=== PATIENT | female | born 1965 | race Two or more races ===

== ENCOUNTER → 2018-06-12 11:01 | Outpatient (CLI) | payer OTHER ==
[~2018-06-12 11:01] MED LIST: CIPRO750 MG PO; DOCUSATE SODIU100 MG PO; PERCOCET 5/3251 TAB PO
== END | disposition home or self-care (01) ==
LOC: LAB 11:01
DX: S34.109A Unspecified injury to unspecified level of lumbar spinal cord, initial encounter (principal); E55.9 Vitamin D deficiency, unspecified; E44.1 Mild protein-calorie malnutrition; M54.5 Low back pain; F33.1 Major depressive disorder, recurrent, moderate; G99.0 Autonomic neuropathy in diseases classified elsewhere; E88.89 Other specified metabolic disorders; F15.20 Other stimulant dependence, uncomplicated; M06.4 Inflammatory polyarthropathy; Z68.32 Body mass index [BMI] 32.0-32.9, adult; R31.1 Benign essential microscopic hematuria

== ENCOUNTER → 2018-09-11 09:03 | Outpatient (CLI) | payer OTHER | END | disposition home or self-care (01) | LOC: LAB 09:03 | DX: D64.89 Other specified anemias (principal); E03.8 Other specified hypothyroidism; N39.0 Urinary tract infection, site not specified; K92.1 Melena; E78.49 Other hyperlipidemia; E55.9 Vitamin D deficiency, unspecified ==

== ENCOUNTER 2019-04-26 10:20 | Outpatient (CLI) | payer OTHER | END 2019-04-26 11:03 | disposition home or self-care (01) | LOC: SONOGRAMA 10:20 | DX: E04.1 Nontoxic single thyroid nodule (principal) ==

== ENCOUNTER 2019-10-16 20:52 | Emergency (ER) | payer OTHER ==
[~2019-10-16] VITALS: Ht 162.6 cm; Wt 89.8 kg
[2019-10-16] MEDS ORDERED: XANAX1 MG (21:27)
[2019-10-16] MEDS ORDERED: LAMICTAL5 MG PO (21:28)
[2019-10-16] MEDS ORDERED: NEURONTIN800 MG PO (21:29)
[2019-10-16] MEDS ORDERED: CYMBALTA60 MG PO (21:29)
[2019-10-16] MEDS ORDERED: TEMODAR5 MG PO (21:30)
[2019-10-16] MEDS ORDERED: VITAMIN D2000 UNI1 PO (21:30)
== END 2019-10-17 02:12 | disposition home or self-care (01) ==
LOC: ER 20:52
DX: S00.83XA Contusion of other part of head, initial encounter (principal); W18.09XA Striking against other object with subsequent fall, initial encounter; Y93.89 Activity, other specified; Y92.098 Other place in other non-institutional residence as the place of occurrence of the external cause; Y99.8 Other external cause status

== ENCOUNTER 2019-12-28 13:05 | Outpatient (CLI) | payer OTHER ==
[~2019-12-28 13:05] MED LIST changes: +CYMBALTA60 MG PO; +LAMICTAL5 MG PO; +NEURONTIN800 MG PO; +TEMODAR5 MG PO; +VITAMIN D2000 UNI1 PO; +XANAX1 MG
== END 2019-12-28 13:16 | disposition home or self-care (01) ==
LOC: SONOGRAMA 13:05 → MAMO-SONO 13:15 → SONOGRAMA 13:16
DX: E04.1 Nontoxic single thyroid nodule (principal)

== ENCOUNTER → 2020-06-04 12:40 | Outpatient (CLI) | payer OTHER | END | disposition home or self-care (01) | LOC: LAB 12:40 | DX: E03.8 Other specified hypothyroidism (principal); C73 Malignant neoplasm of thyroid gland ==

== ENCOUNTER 2020-06-27 14:15 | Outpatient (CLI) | payer OTHER | END 2020-06-27 14:21 | disposition home or self-care (01) | LOC: SONOGRAMA 14:15 → MAMO-SONO 14:15 → SONOGRAMA 14:21 | DX: R10.2 Pelvic and perineal pain (principal) ==

== ENCOUNTER 2020-09-02 14:52 | Outpatient (CLI) | payer OTHER | END 2020-09-02 14:57 | disposition HB | LOC: SONOGRAMA 14:52 | DX: E04.1 Nontoxic single thyroid nodule (principal) ==

== ENCOUNTER 2022-09-27 09:45 | Inpatient (IN) | payer OTHER ==
[~2022-09-27] VITALS: Ht 185.4 cm; Wt 80.7 kg
[2022-09-27] MEDS ORDERED: RESTORIL PO (10:57)
[2022-09-27] MEDS ORDERED: PEPC PO (10:57)
[2022-09-27] MEDS ORDERED: B-COMPLEX1 EACH PO (10:58)
[2022-09-27] MEDS ORDERED: CALTRAT PO (10:58)
[2022-09-27] MEDS ORDERED: CATAFLAN PO (10:58)
[2022-09-30] MEDS ORDERED: COLACE100 MG PO (09:31)
[2022-09-30] MEDS ORDERED: MEDROLPACK PO (09:32)
[2022-09-30] MEDS ORDERED: PERCOCET 5-3251 EACH PO (09:32)
== END 2022-10-01 13:23 | disposition home or self-care (01) | DRG 472 ==
LOC: O/R 09-30 05:42 → SURH 09-30 09:45 → PED 09-30 17:25
PROVIDERS: ADMIT Orthopaedic Surgery Orthopaedic Surgery of the Spine; ATTEND Orthopaedic Surgery Orthopaedic Surgery of the Spine
PROC: 07DS0ZZ Extraction of Vertebral Bone Marrow, Open Approach (ICD-10-PCS; 2022-09-30)
PROC: 0RG20A0 Fusion of 2 or more Cervical Vertebral Joints with Interbody Fusion Device, Anterior Approach, Anterior Column, Open Approach (ICD-10-PCS; principal; 2022-09-30 12:00)
DX: M50.01 Cervical disc disorder with myelopathy, high cervical region (principal); M47.12 Other spondylosis with myelopathy, cervical region; M50.021 Cervical disc disorder at C4-C5 level with myelopathy

== ENCOUNTER 2023-04-01 07:13 | Outpatient (CLI) | payer OTHER ==
[~2023-04-01 07:13] MED LIST changes: +B-COMPLEX1 EACH PO; +CALTRAT PO; +CATAFLAN PO; +COLACE100 MG PO; +MEDROLPACK PO; +PEPC PO; +PERCOCET 5-3251 EACH PO; +RESTORIL PO
== END 2023-04-01 07:23 | disposition home or self-care (01) ==
LOC: RX STUDY 07:13
PROVIDERS: ATTEND Otolaryngology
DX: R10.13 Epigastric pain (principal)